=== PATIENT | male | born 2000 | race American Indian/Alaskan Native ===

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

== ENCOUNTER 2022-01-26 15:53 | Emergency (ER) | payer SELFPAY | END 2022-01-26 23:00 | disposition left against medical advice (07) | LOC: ED 15:53 | DX: L02.92 Furuncle, unspecified (principal); Z53.21 Procedure and treatment not carried out due to patient leaving prior to being seen by health care provider ==